=== PATIENT | male | born 1945 | race Caucasian/White ===

== ENCOUNTER 2018-01-25 07:32 | Emergency (ER) | payer MEDICARE, BC ==
[2018-01-25] MEDS ORDERED: SODIUM CHLORIDE 0.9% 1,000 ML IV STA (07:34)
--- NOTE | 2018-01-25 07:37 | ED ---
SOB HPI - General Stated Complaint: Sob Time Seen by Provider: 01/25/18 07:32 Source: patient, EMS, RN notes reviewed Mode of arrival: EMS - History of Present Illness Initial Comments: This is a 72-year-old male history of COPD and hypertension who states he had the onset last evening of shortness of breath cough of white phlegm chills no overt chest pain no nausea vomiting diarrhea or other symptoms. It did get progressively worse this morning he was unable to breathe very well. EMS was summoned. He was given 2 albuterol 1 ipratropium and 50 mg of prednisone orally. He does state he did get some relief from the symptoms with this medication. His other complaints this time. He does state his recently had a cold. No other modifying factors at this time of note the patient did have is wheezing at the initial contact by paramedics. Additionally the patient did not take his antihypertensive medication this morning. MD Complaint: shortness of breath, cough - Related Data Home Medications Medication Instructions Recorded Confirmed Albuterol Nebulized [Ventolin 2.5 mg INHALATION RT-DAILY@1400 01/25/18 01/25/18 Nebulized] Albuterol Sulfate [Proair Hfa] 1 - 2 puff INHALATION RT-Q6H PRN 01/25/18 Aspirin EC [Ecotrin Low Dose] 81 mg PO DAILY 01/25/18 01/25/18 Formoterol Fumarate [Perforomist] 20 mcg INHALATION RT-BID 01/25/18 01/25/18 Furosemide [Lasix] 40 mg PO DAILY 01/25/18 01/25/18 Metoprolol Tartrate [Lopressor] 75 mg PO BID 01/25/18 01/25/18 Multivitamins, Thera [Multivitamin 1 tab PO DAILY 01/25/18 01/25/18 (formulary)] Simvastatin [Zocor] 20 mg PO HS 01/25/18 01/25/18 amLODIPine BESYLATE 10 mg PO DAILY 01/25/18 01/25/18 Previous Rx's Medication Instructions Recorded predniSONE 20 mg PO BID #10 tab 01/25/18 Allergies Allergy/AdvReac Type Severity Reaction Status Date / Time No Known Allergies Allergy Verified 01/25/18 08:19 Review of Systems ROS Statement: Those systems with pertinent positive or pertinent negative responses have been documented in the HPI. ROS Other: All systems not noted in ROS Statement are negative. General Exam - General Exam Comments Initial Comments: This is a well-developed well-nourished awake alert oriented times 3 male General appearance: alert, anxious Head exam: Present: atraumatic, normocephalic, normal inspection Eye exam: Present: normal appearance, PERRL, EOMI. Absent: scleral icterus, conjunctival injection, periorbital swelling ENT exam: Present: normal exam, mucous membranes moist Neck exam: Present: normal inspection, full ROM. Absent: tenderness, meningismus, lymphadenopathy Respiratory exam: Present: wheezes, decreased breath sounds. Absent: respiratory distress, rales, rhonchi, stridor Cardiovascular Exam: Present: regular rate, normal rhythm, normal heart sounds. Absent: systolic murmur, diastolic murmur, rubs, gallop, clicks GI/Abdominal exam: Present: soft, normal bowel sounds. Absent: distended, tenderness, guarding, rebound, rigid Extremities exam: Present: normal inspection, full ROM, normal capillary refill. Absent: tenderness, pedal edema, joint swelling, calf tenderness Back exam: Present: normal inspection Neurological exam: Present: alert, oriented X3, CN II-XII intact Psychiatric exam: Present: normal affect, normal mood Skin exam: Present: warm, dry, intact, normal color. Absent: rash Course Vital Signs 01/25/18 01/25/18 07:33 08:55 Temperature 101.6 F H 101.1 F H Pulse Rate 89 76 Respiratory 24 18 Rate Blood Pressure 153/69 127/63 O2 Sat by Pulse 95 94 L Oximetry - Reevaluation(s) Reevaluation #1: 01/25/18 09:22 I did reevaluate the patient on several occasions he is feeling much improved at this time. Medical Decision Making - Medical Decision Making The patient initially much improved at this time he has clear lung sounds with good aeration. The presentation is consistent with a viral bronchitis and bronchospasm/COPD exacerbation. Patient does have a nebulizer at home with appropriate medication she'll be sent home with a prednisone prescription. He is a follow-up with his doctor and return when necessary - Lab Data Result diagrams: 01/25/18 07:50 01/25/18 07:50 Lab Results 01/25/18 01/25/18 01/25/18 Range/Units 07:50 07:50 07:50 WBC 9.8 (3.8-10.6) k/uL RBC 4.61 (4.30-5.90) m/uL Hgb 14.9 (13.0-17.5) gm/dL Hct 42.9 (39.0-53.0) % MCV 93.2 (80.0-100.0) fL MCH 32.3 (25.0-35.0) pg MCHC 34.6 (31.0-37.0) g/dL RDW 13.0 (11.5-15.5) % Plt Count 287 (150-450) k/uL Neutrophils % 79 % Lymphocytes % 8 % Monocytes % 9 % Eosinophils % 1 % Basophils % 0 % Neutrophils # 7.8 H (1.3-7.7) k/uL Lymphocytes # 0.8 L (1.0-4.8) k/uL Monocytes # 0.9 (0-1.0) k/uL Eosinophils # 0.1 (0-0.7) k/uL Basophils # 0.0 (0-0.2) k/uL PT (9.0-12.0) sec INR (<1.2) APTT (22.0-30.0) sec Sodium 139 (137-145) mmol/L Potassium 4.3 (3.5-5.1) mmol/L Chloride 103 (98-107) mmol/L Carbon Dioxide 25 (22-30) mmol/L Anion Gap 11 mmol/L BUN 13 (9-20) mg/dL Creatinine 0.80 (0.66-1.25) mg/dL Est GFR (CKD-EPI)AfAm >90 (>60 ml/min/1.73 sqM) Est GFR (CKD-EPI)NonAf 88 (>60 ml/min/1.73 sqM) Glucose 86 (74-99) mg/dL Plasma Lactic Acid Johnny (0.7-2.0) mmol/L Calcium 9.1 (8.4-10.2) mg/dL Magnesium 2.1 (1.6-2.3) mg/dL Total Bilirubin 0.8 (0.2-1.3) mg/dL AST 34 (17-59) U/L ALT 29 (21-72) U/L Alkaline Phosphatase 86 (38-126) U/L Total Creatine Kinase 111 (55-170) U/L CK-MB (CK-2) 1.2 (0.0-2.4) ng/mL CK-MB (CK-2) Rel Index 1.1 Troponin I <0.012 (0.000-0.034) ng/mL NT-Pro-B Natriuret Pep pg/mL Total Protein 7.6 (6.3-8.2) g/dL Albumin 4.5 (3.5-5.0) g/dL 01/25/18 01/25/18 01/25/18 Range/Units 07:50 07:50 07:50 WBC (3.8-10.6) k/uL RBC (4.30-5.90) m/uL Hgb (13.0-17.5) gm/dL Hct (39.0-53.0) % MCV (80.0-100.0) fL MCH (25.0-35.0) pg MCHC (31.0-37.0) g/dL RDW (11.5-15.5) % Plt Count (150-450) k/uL Neutrophils % % Lymphocytes % % Monocytes % % Eosinophils % % Basophils % % Neutrophils # (1.3-7.7) k/uL Lymphocytes # (1.0-4.8) k/uL Monocytes # (0-1.0) k/uL Eosinophils # (0-0.7) k/uL Basophils # (0-0.2) k/uL PT 10.0 (9.0-12.0) sec INR 0.9 (<1.2) APTT 25.0 (22.0-30.0) sec Sodium (137-145) mmol/L Potassium (3.5-5.1) mmol/L Chloride (98-107) mmol/L Carbon Dioxide (22-30) mmol/L Anion Gap mmol/L BUN (9-20) mg/dL Creatinine (0.66-1.25) mg/dL Est GFR (CKD-EPI)AfAm (>60 ml/min/1.73 sqM) Est GFR (CKD-EPI)NonAf (>60 ml/min/1.73 sqM) Glucose (74-99) mg/dL Plasma Lactic Acid Johnny 1.6 (0.7-2.0) mmol/L Calcium (8.4-10.2) mg/dL Magnesium (1.6-2.3) mg/dL Total Bilirubin (0.2-1.3) mg/dL AST (17-59) U/L ALT (21-72) U/L Alkaline Phosphatase (38-126) U/L Total Creatine Kinase (55-170) U/L CK-MB (CK-2) (0.0-2.4) ng/mL CK-MB (CK-2) Rel Index Troponin I (0.000-0.034) ng/mL NT-Pro-B Natriuret Pep 432 pg/mL Total Protein (6.3-8.2) g/dL Albumin (3.5-5.0) g/dL - EKG Data -: EKG Interpreted by Ar EKG shows normal: sinus rhythm (Normal sinus rhythm of 81. Interval 192 QRS duration 96 QT since QTC 372/[address]-T wave changes) - Radiology Data Radiology results: report reviewed (Review the imaging and report chronic parenchymal changes no acute pulmonary processes seen), image reviewed Disposition Clinical Impression: Acute exacerbation of chronic obstructive airways disease, Viral syndrome, Acute bronchitis, Febrile illness, acute Disposition: HOME SELF-CARE Condition: Good Instructions: Acute Bronchitis (ED), Viral Syndrome (ED), COPD (Chronic Obstructive Pulmonary Disease) (ED), Fever in Adults (ED) Additional Instructions: [id number] Tylenol for fever. Adequate fluids. Prescriptions: predniSONE 20 mg PO BID #10 tab Is patient prescribed a controlled substance at d/c from ED?: No Referrals: Gelacio George MD [Primary Care Provider] - 1-2 days
[2018-01-25 08:16] LABS: Basophils % (A) 0 %; Eosinophils # (A) 0.1 k/uL (0-0.7); Eosinophils % (A) 1 %; HCT 42.9 % (39.0-53.0); HGB 14.9 gm/dL (13.0-17.5); Lymphocytes # (A) 0.8 k/uL (1.0-4.8); Lymphocytes % (A) 8 %; MCH 32.3 pg (25.0-35.0); MCHC 34.6 g/dL (31.0-37.0); MCV 93.2 fL (80.0-100.0); Mean Platelet Volume 7.2; Monocytes # (A) 0.9 k/uL (0-1.0); Monocytes % (A) 9 %; Neutrophils # (A) 7.8 k/uL (1.3-7.7); Neutrophils % (A) 79 %; Platelet Count 287 k/uL (150-450); RBC 4.61 m/uL (4.30-5.90); WBC 9.8 k/uL (3.8-10.6)
[2018-01-25] MEDS ORDERED: ACETAMINOPHEN TAB 500 MG TAB PO STA (08:17)
[2018-01-25 08:25] LABS: Albumin 4.5 g/dL (3.5-5.0); Anion Gap 11 mmol/L; Blood Urea Nitrogen 13 mg/dL (9-20); Calcium 9.1 mg/dL (8.4-10.2); Carbon Dioxide 25 mmol/L (22-30); Chloride 103 mmol/L (98-107); Glucose 86 mg/dL (74-99); Sodium 139 mmol/L (137-145); Total Bilirubin 0.8 mg/dL (0.2-1.3); Total Protein 7.6 g/dL (6.3-8.2)
[2018-01-25 08:33] LABS: ALT 29 U/L (21-72); AST 34 U/L (17-59); Alkaline Phosphatase 86 U/L (38-126); Magnesium 2.1 mg/dL (1.6-2.3); Potassium 4.3 mmol/L (3.5-5.1)
[2018-01-25 08:37] LABS: Creatine Kinase 111 U/L (55-170)
[2018-01-25 08:50] LABS: Creatine Kinase MB 1.2 ng/mL (0.0-2.4); Troponin I <0.012 ng/mL (0.000-0.034)
--- NOTE | 2018-01-25 08:53 | XR ---
EXAMINATION TYPE: XR chest 2V DATE OF EXAM: 01/25/2018 COMPARISON: NONE HISTORY: History of hypertension and COPD with shortness of breath and cough. TECHNIQUE: Frontal and lateral views of the chest are obtained. FINDINGS: There is chronic parenchymal change without suspicious focal air space opacity, pleural ef fusion, or pneumothorax seen. The cardiac silhouette size is upper limits of normal. The osseous s tructures are intact. IMPRESSION: Chronic parenchymal change without acute pulmonary process.
[2018-01-25 08:56] VITALS: RESP 18
[2018-01-25 09:13] LABS: INR 0.9 (<1.2)
[2018-01-25 09:46] VITALS: BP 125/70; PULSE 70; TEMP 99.1
== END 2018-01-25 09:43 | disposition home or self-care (01) ==
LOC: EC 07:32
DX: J44.1 Chronic obstructive pulmonary disease with (acute) exacerbation (principal); J44.0 Chronic obstructive pulmonary disease with (acute) lower respiratory infection; J20.9 Acute bronchitis, unspecified; B34.9 Viral infection, unspecified; I10 Essential (primary) hypertension; Z79.82 Long term (current) use of aspirin; Z79.899 Other long term (current) drug therapy
CPT/HCPCS: 36415; 71046; 80053; 82550; 82553; 83605; 83735; 83880; 84484; 85025; 85610; 85730; 87040; 93005; 96360; 99285